=== PATIENT | female | born 1980 ===

== ENCOUNTER 2023-03-03 09:50 | Observation (INO) ==
[~2023-03-03 09:50] MED LIST: Clindamycin 300 MG/D5W BAG 300 MG/50 ML BAG IV ONE; Clindamycin 600 MG/NS BAG IV ONE; Dexamethasone Oral Solution 1 MG/ML 10 ML UDC (10 MG) PO ONE
[2023-03-03] MEDS ORDERED: Scopolamine 1 mg/72hr PATCH ONE (10:44)
[2023-03-03] MEDS ORDERED: oxyCODONE SR 10 mg TAB ONE (10:44)
[2023-03-03] MEDS ORDERED: Ondansetron 4 mg VIAL 2 MG/ML 2 ml VIAL ONE (10:44)
[2023-03-03] MEDS ORDERED: Naloxone 0.4 mg VIAL 0.4 mg/ml 1 ml VIAL IV PUSH PRN (11:48)
[2023-03-03] MEDS ORDERED: HYDROmorphone PCA 20 MG/20 ML PCA.SYRING PCA SCH (12:00)
[2023-03-03] MEDS ORDERED: Midazolam 5 mg/5 ml VIAL 1 mg/ml 5 ml VIAL (5 mg) ONE (13:18)
[2023-03-03] MEDS ORDERED: Lidocaine 1% VIAL 10 MG/ML 30 ML VIAL ONE (13:18)
[2023-03-03] MEDS ORDERED: fentaNYL 100 mcg/2 ml 50 MCG/ML VIAL ONE (13:18)
[2023-03-03] MEDS ORDERED: Iohexol 350 (CONTRAST) 100 ML PAK IV ONE ×2 (13:19→14:48)
[2023-03-03] MEDS ORDERED: nitroGLYCERIN DRIP 25,000 MCG/250 ML BTL ONE (13:19)
[2023-03-03] MEDS ORDERED: Heparin 2 UNITS/ML IVPREMIX 3,000 UNIT/1,500 ML BAG IV ONE (13:19)
[2023-03-03 13:29] LABS: ABS Lymphocytes 0.7 10^3/uL (1.0-4.8); ABS Monocytes 0.1 10^3/uL (0.0-0.9); ABS Neutrophils 3.5 10^3/uL (1.5-7.6); Eosinophil % 0.4 %; Hematocrit 35.7 % (35-45); Hemoglobin 12.5 g/dL (11.5-14.3); Lymphocyte % 16.5 %; Mean Corpuscular Hemoglobin 30.4 pg (27-33); Mean Platelet Volume 8.9 fL (7.5-11.2); Nucleated Red Blood Cells % 0.1 /100 WBC (0.0-0.4); Platelet Count 139 10^3/uL (150-450); Red Cell Distribution Width 14.3 % (12-17); White Blood Count 4.3 10^3/uL (3.8-11.8)
[2023-03-03 13:41] LABS: Activated Partial Thrombo Time 28.3 seconds (26.0-38.0); INR 1.04 (0.83-1.13)
[2023-03-03 13:51] LABS: Anion Gap 5 mmol/L (2-16); Blood Urea Nitrogen 9 mg/dL (6-24); CO2 Carbon Dioxide 25 mmol/L (22-32); Calcium 8.6 mg/dL (8.6-10.3); Chloride 108 mmol/L (101-111); Creatinine, Serum 0.68 mg/dL (0.51-0.95); Glucose 98 mg/dL (70-100); Potassium 4.3 mmol/L (3.5-5.0); Sodium 138 mmol/L (135-145); eGFR CKD-EPI 110.1 (>60)
[2023-03-03 13:54] LABS: HCG Pregnancy < 0.60 mIU/mL
[2023-03-03] MEDS ORDERED: HYDROmorphone 0.5 MG/0.5 ML SYRINGE ONE ×2 (15:08→15:21)
[2023-03-03] MEDS ORDERED: NS 0.9% 1,000 ML IV SCH (19:30)
[2023-03-03] MEDS: Ondansetron 4 mg VIAL 2 MG/ML 2 ml VIAL IV SCH (20:10)
[2023-03-04] MEDS: Ondansetron 4 mg VIAL 2 MG/ML 2 ml VIAL IV SCH ×2 (02:12→09:03)
[2023-03-04 06:21] LABS: ABS Lymphocytes 1.1 10^3/uL (1.0-4.8); ABS Monocytes 0.6 10^3/uL (0.0-0.9); ABS Neutrophils 5.7 10^3/uL (1.5-7.6); Hematocrit 31.5 % (35-45); Hemoglobin 11.1 g/dL (11.5-14.3); Lymphocyte % 14.4 %; Mean Corpuscular Hemoglobin 30.6 pg (27-33); Mean Corpuscular Hgb Conc 35.4 g/dL (31-36); Mean Corpuscular Volume 86.6 fL (80-97); Mean Platelet Volume 8.8 fL (7.5-11.2); Platelet Count 128 10^3/uL (150-450); Red Blood Count 3.64 10^6/uL (3.63-4.92); Red Cell Distribution Width 14.1 % (12-17); White Blood Count 7.3 10^3/uL (3.8-11.8)
[2023-03-04 06:39] LABS: Calcium 7.9 mg/dL (8.6-10.3); Creatinine, Serum 0.67 mg/dL (0.51-0.95); Potassium 4.1 mmol/L (3.5-5.0); eGFR CKD-EPI 110.5 (>60)
[2023-03-04] MEDS ORDERED: HYDROcodone/ACETAMIN 5/325 mg TAB PO PRN (10:06)
[2023-03-04] MEDS ORDERED: Ketorolac 10 mg TAB (NF) PO SCH (15:00)
== END 2023-03-04 15:45 | disposition home or self-care (01) ==
LOC: CHICATH 09:50 → INTOOBSV 18:03 → SSU 18:03
PROVIDERS: ADMIT Radiology Diagnostic Radiology; ATTEND Internal Medicine
PROC: ANG.UFE (2023-03-03 12:10)